=== PATIENT | male | born 1930 | race Caucasian/White ===

== ENCOUNTER → 2016-12-30 | Day surgery (SDC) | payer MEDICARE, OTHER ==
[~2016-12-30] MED LIST: ALEVE PO; ALTACE; ALTACE PO; AMOXICILLIN PO; APAP325 M2 PO; ASPIRIN PO; ASPIRIN1 GM PO; CARDIZEM PO; CIPRO250 M1 PO; FISH OIL 1,0001 CAP PO; FLAX SEED OIL1000 MG PO; FLUOROMETHOLONE; HYDRALAZINE HCL50 MG PO; HYTRIN PO; IRON18 MG; LASIX20 MG PO; LISINOPRIL PO; LOSARTAN POTAS100 MG PO; METOPROLOL TAR25 MG PO; MULTI-VITAMIN1 EAC1; NEXIUM; NORVASC PO; PERCOCET 5-3251 TAB PO; PREVACID PO; PRILOSEC PO; PROSCAR5 MG PO; SENSIPAR30 MG PO; SLO-NIACIN; SYMBICORT80 INH; TOPROL XL PO; ZEGERID40 MG/PKT PO; ZOCOR PO
--- NOTE | ~2016-12-30 | OR ---
Unit #: [id number] #: [id number] Patient: MAIKEL FERRELL [id number] [address] [address] [id number] MR#: [id number] NAME: MAIKEL FERRELL. ROOM: Date of Procedure: 12/30/2016 Admission Date: 12/30/2016 Surgeon: Jayden Trent M.D. : 1930 Attending Physician: Jayden Trent M.D. Primary Care Physician: Thom Montoya M.D. PROCEDURE OPERATIVE NOTE ATTENDING PHYSICIAN Dr. Thom Montoya. OPERATING PHYSICIAN Dr. Jayden Trent. PREOPERATIVE DIAGNOSIS Dysphagia to solids. PROCEDURES PERFORMED 1. Upper gastrointestinal endoscopy and biopsy. 2. Upper gastrointestinal endoscopy and dilation with TTS balloon. POSTOPERATIVE DIAGNOSES 1. Patient had distal esophageal benign stricture. This was dilated using a 18-20 mm TSS balloon. 2. Small hiatus hernia. 3. Distal erosive esophagitis. 4. Prepyloric antral moderate gastritis. 5. Mild focal patchy erosive duodenitis. 6. Rest of examination up to third part of duodenum was normal. Biopsy was obtained from the antrum for CLOtest. RECOMMENDATIONS 1. Omeprazole 40 mg p.o. daily. 2. The patient will be followed up in the office in three months' time. SEDATION USED MAC. PROCEDURE DESCRIPTION Following detailed explanation of potential risks and complications of an upper endoscopy, namely perforation, bleeding, and complications related to sedation, the patient was brought to GI lab and laid in the left lateral decubitus position. The lubricated tip of the Olympus video upper endoscope was passed through the bite block into the proximal esophagus under direct vision. The entire esophageal mucosa was examined. Patient was noted to have distal ulcerative esophagitis along with stricturing. In addition, a small hiatus hernia was noted. The scope was then advanced into the gastric cavity and the latter was insufflated. The mucosa of the fundus, body, and antrum was examined and appeared unremarkable. Mucosa of fundus, body, and antrum were examined. The patient was noted to have Unit #: [id number] #: [id number] Patient: MAIKEL FERRELL moderate prepyloric antral erosive gastritis. The pylorus was intubated with visualization of the duodenal bulb. The latter was noted to have focal patchy mild erosive duodenitis. Second and third part of the duodenum were normal. Upon withdrawal and retroflexion; the incisura, cardia, and greater curve were examined and biopsy obtained from the antrum for CLOtest. The scope was then withdrawn into the distal esophagus. An 18-20 mm TTS balloon was passed through the accessory channel of the scope and step-up dilation of the distal esophagus was done. Minimal bleeding was noted after fracturing the stricture. The area was thoroughly washed with water and good hemostasis was achieved. The scope was then withdrawn. Patient returned to the recovery area. He tolerated the procedure without any post procedure complications. Dictated by... Claudia Rodriguez/kim TD: 12/30/2016 11:21 JOB #: [id number] CC: Thom Montoya M.D. PROCEDURE OPERATIVE NOTE Page 1 of 1 X Jayden Trent MD X PROCEDURE OPERATIVE NOTE
== END | disposition home or self-care (01) ==
LOC: COPS 07:42
DX: K22.2 Esophageal obstruction (principal); K44.9 Diaphragmatic hernia without obstruction or gangrene; K22.10 Ulcer of esophagus without bleeding; K29.70 Gastritis, unspecified, without bleeding; K29.80 Duodenitis without bleeding; I10 Essential (primary) hypertension; J44.9 Chronic obstructive pulmonary disease, unspecified; M19.90 Unspecified osteoarthritis, unspecified site; Z87.01 Personal history of pneumonia (recurrent); Z87.442 Personal history of urinary calculi; Z79.82 Long term (current) use of aspirin; Z79.899 Other long term (current) drug therapy; Z90.49 Acquired absence of other specified parts of digestive tract
CPT/HCPCS: 87077